=== PATIENT | female | born 1940 ===

== ENCOUNTER 2019-10-18 19:22 | Inpatient (IN) | payer MEDICAID, MEDICARE ==
[2019-10-18 22:50] VITALS: BP 160/84
[2019-10-18] MEDS ORDERED: Magnesium Hydroxide (MOM) 30 mL UDC PO PRN (22:53)
[2019-10-19] MEDS ORDERED: Haloperidol Lactate 5 mg/mL 1mL Vial ONE ×2 (10:43→16:24)
--- NOTE | 2019-10-19 13:32 | History & Physical ---
ADMIT DATE: 10/18/2019 IDENTIFYING INFORMATION: The patient is a 79-year-old female. CHIEF COMPLAINT: "I need to be out of here." HISTORY OF PRESENT ILLNESS: The patient was sent from [place] and medically cleared. She is homeless. She has no allergy. The patient is on a hold for grave disability, danger to self and others. According to the hold, the patient was displaying rapid increase in baseline behavior of concern including increasing aggression, hostility, and agitation. She was alert, oriented x 4; though when I talked to the patient, she could not tell me the date. She knew she was in some sort of facility. She was preoccupied for discharge, she was confused. She believes she is 77, on reality, she is 79. The patient was very much intrusive, kept following me around, telling me that she need to be out of here or if not discharged for a change doctor. She admits, that she has been depressed all of her life. She is not sure why she is here. She denies any prior attempt to harm herself. She denies any other visual hallucination, she is a poor historian. 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 PAST PSYCHIATRIC HISTORY: The patient reports she has been hospitalized before. Unable to give me details. She said she has a history of being addicted to Valium, but she denies any prior suicide attempt. MEDICAL HISTORY: Deferred to the medical doctor. ALLERGIES: The patient has no known drug allergy. MEDICATIONS: The patient is currently on antibiotic on Cipro for UTI infection. FAMILY AND SOCIAL HISTORY: The patient reports she has been depressed all her life. The patient reports that she is , unable tell me how long, but she was , she reports for 14 years. She has 1 son. She believes he is 20s years of age, which is impossible. She reports she has not talked to him for years. She lives in [place]. She has no support. She has a history of abusing Valium in the past. She reports she has been hospitalized before, unable to tell me how often the patient was uncooperative with ____. MENTAL STATUS EXAMINATION: I have been unable to test her memory or her intelligence because of her preoccupation with wanting to be discharged, kept following me from one place to the other, telling me to discharge her or change doctor, unpredictable, impulsive. When asked about sleep and appetite, she did not answer me. When asked about hallucination, she denied. Her long-term memory is poor, cannot remember her age, date of . Recent memory is poor. She is not sure ____ coming here. Her insight about her illness is poor, does not realize what problem she has. Judgment is poor with her being homeless, hard to redirect. 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 ASSESTS: She seems to be physically healthy. Negative poor coping skills, homeless, no support. Does not talk to her son. PLAN: The patient will be started on Lexapro. We will do group therapy, milieu therapy, and individual therapy. Assist with placement. ESTIMATED LENGTH OF STAY: 3-7 days. DISCHARGE CRITERIA: Decreasing depression with a safe place to go to after discharge outpatient treatment. [facility]# [id number]
--- NOTE | 2019-10-19 17:38 | History & Physical ---
ADMIT DATE: HISTORY OF PRESENT ILLNESS: We have a 79-year-old female with hypertension, who reports to the hospital, who is homeless and has suicidal ideations. No chest pain, shortness of breath. No nausea, vomiting, abdominal pain. The patient is somnolent, difficult to awaken. PAST MEDICAL HISTORY: 1. Hypertension. 2. Renal failure. 3. Depression. PAST SURGICAL HISTORY: Non-obtainable. MEDICATIONS: Reviewed. ALLERGIES: None. SOCIAL HISTORY: Non-obtainable. REVIEW OF SYSTEMS: Unobtainable. PHYSICAL EXAMINATION: VITAL SIGNS: Temperature is 98.7, pulse ____, respirations 20, blood pressure 172/66. HEENT: Normocephalic, atraumatic head exam. NECK: Supple. CARDIOVASCULAR: Regular rate and rhythm. LUNGS: Decreased breath sounds. ABDOMEN: Soft, nontender. EXTREMITIES: No edema, cyanosis or clubbing. ASSESSMENT AND PLAN: 1. Depression. 2. Hypertension. 3. Renal insufficiency. 4. Urinary tract infection. The patient will be continued on Cipro. We will repeat labs. JOB# [id number]
[2019-10-20] MEDS: Escitalopram Oxalate 5 mg Tab PO SCH (09:05)
--- NOTE | 2019-10-20 11:46 | Internal Medicine Prog Note ---
Internal Medicine Subjective - Subjective Service Date: 10/20/19 Patient seen and examined:: without staff Patient is:: awake, verbal, interactive Per staff patient has:: no adverse event, no episodes of fall Internal Medicine Objective - Physical Exam Vitals and I&O: Vital Signs Temp 97.4 F 10/19/19 14:00 Pulse 83 10/19/19 14:00 Resp 18 10/19/19 14:00 BP 112/75 10/19/19 14:00 Pulse Ox 98 10/19/19 14:00 Intake & Output 10/19/19 10/20/19 10/20/19 18:59 06:59 18:59 Intake Total 800 120 Balance 800 120 Intake: Oral 800 120 Other: # Voids 3 3 # Bowel Movements 1 Active Medications: Current Medications Acetaminophen (Tylenol) 650 mg PO Q4H PRN PRN Reason: Pain (Mild 1-3) Stop: 12/17/19 22:52 Last Admin: 10/18/19 23:35 Dose: 650 mg Ciprofloxacin (Cipro) 500 mg PO BID [facility] Stop: 10/21/19 17:01 Last Admin: 10/20/19 09:04 Dose: 500 mg Escitalopram Oxalate (Lexapro) 5 mg PO DAILY [facility]; Protocol Stop: 12/19/19 08:59 Last Admin: 10/20/19 09:05 Dose: 5 mg Lorazepam (Ativan) 0.5 mg PO Q4HR PRN; Protocol PRN Reason: Anxiety Stop: 11/17/19 22:52 Magnesium Hydroxide (Milk Of Magnesia) 30 ml PO HS PRN PRN Reason: Constipation Zolpidem Tartrate (Ambien) 5 mg PO HS PRN PRN Reason: Insomnia Stop: 12/17/19 22:52 General: NAD HEENT: NC/AT Neck: Supple, No JVD Lungs: CTAB Cardiovascular: RRR, Normal S1, Normal S2 Abdomen: soft, non-tender Extremities: clear Internal Medicine Assmt/Plan - Assessment Assessment: 1. UTI 2. Psychosis 3. Depression - Plan Plan: continue supportive care d/w r.n.
--- NOTE | 2019-10-20 20:22 | Progress Notes ---
DATE: 10/20/2019 SUBJECTIVE: Case was discussed with staff of the patient, reviewed records. The patient today is a bit calmer. She is not following me and yelling and screaming as she was before; however, she continues to be confused, does not able to tell me her age. Continues to be preoccupied with discharge. However, the staff reports she is compliant with the medication with no side effects. Working on placement. MENTAL STATUS EXAMINATION: The patient is appropriately dressed, not well groomed. Unable to make safe plan for self-care, preoccupied with discharge, minimizing any current intent to harm herself or anybody. The patient with a history of using Valium in the past. ASSESSMENT AND PLAN: The patient continues to be depressed, gravely disabled. Continues to pose a threat to herself and others because of her extreme agitation, irritability. No side effects with the medication, no sedation, no nausea, no extrapyramidal symptoms. The patient is on Cipro and I initially put her on Lexapro yesterday 5 mg a day. We will continue outpatient group therapy, milieu therapy, adjust medication as needed. JOB# [id number]
[2019-10-21] MEDS: Escitalopram Oxalate 5 mg Tab PO SCH (08:44)
--- NOTE | 2019-10-21 20:41 | Psych Progress Note ---
Psych Progress Note - Intro Date of Progress Note: 10/21/19 - Assessment Assessment: Patient interviewed, case discussed with staff, chart and records reviewed. The patient was poorly cooperative with the interview but appears to be calmer. She is guarded and and appears to be irritable with this provider not willing to cooperate. Per staff the patient has been taking her medications. Less behavioral episodes. The patient continues to be disorganized with no plan for self-care. No other concerns at this time. - Vitals, I&O Vitals: Vital Signs - 24 hr 10/21/19 10/21/19 10/21/19 06:30 14:00 19:54 Temp 98.3 F 97.5 F 97.6 F HR 91 79 89 RR 19 20 20 BP 154/84 163/78 175/75 O2 Sat % 96 96 97 10/21/19 19:58 Temp HR RR 20 BP O2 Sat % - Objective Psych General Appearance: Report: No acute distress Psych Behavior: Report: Alert, Uncooperative Psych Speech: Report: Coherent Psych Mood: Report: Irritable Psych Affect: Report: Constricted Psych Cognition: Report: Confused Psych Insight: Report: Impaired Psych Judgement: Report: Impaired - Plan Plan: Continue current treatment plan continue to monitor behaviors and will continue current medications as prescribed. - Review of Relevant Data Review of Relevant Data: I have reviewed the following items and time kinjal (where applicable) has been applied. Psych Data Reviewed: Vitals - Medications Current Medications: Current Medications Acetaminophen (Tylenol) 650 mg PO Q4H PRN PRN Reason: Pain (Mild 1-3) Stop: 12/17/19 22:52 Last Admin: 10/21/19 02:59 Dose: 650 mg Escitalopram Oxalate (Lexapro) 5 mg PO DAILY [facility]; Protocol Stop: 12/19/19 08:59 Last Admin: 10/21/19 08:44 Dose: 5 mg Lorazepam (Ativan) 0.5 mg PO Q4HR PRN; Protocol PRN Reason: Anxiety Stop: 11/17/19 22:52 Magnesium Hydroxide (Milk Of Magnesia) 30 ml PO HS PRN PRN Reason: Constipation Risperidone (Risperdal) 0.5 mg PO BID [facility]; Protocol Stop: 12/20/19 08:59 Last Admin: 10/21/19 16:30 Dose: 0.5 mg Zolpidem Tartrate (Ambien) 5 mg PO HS PRN PRN Reason: Insomnia Stop: 12/17/19 22:52
[2019-10-22] MEDS: Escitalopram Oxalate 5 mg Tab PO SCH ×2 (09:08→10:39)
--- NOTE | 2019-10-22 19:08 | Psych Progress Note ---
Psych Progress Note - Intro Date of Progress Note: 10/22/19 - Assessment Assessment: Patient interviewed, case discussed with staff, chart and records reviewed. The patient was poorly cooperative with the interview but appears to be calmer. She is guarded and and appears to be irritable with this provider not willing to cooperate. Per staff the patient has been taking her medications. Less behavioral episodes. The patient continues to be disorganized with no plan for self-care. Discharged focused. No other concerns at this time. - Vitals, I&O Vitals: Vital Signs - 24 hr 10/21/19 10/21/19 10/22/19 19:54 19:58 08:00 Temp 97.6 F HR 89 75 RR 20 20 20 BP 175/75 142/66 O2 Sat % 97 10/22/19 14:00 Temp 98.4 F HR 73 RR 20 BP 145/60 O2 Sat % 92 - Objective Psych General Appearance: Report: No acute distress Psych Behavior: Report: Alert, Uncooperative Psych Speech: Report: Coherent Psych Mood: Report: Irritable Psych Affect: Report: Constricted Psych Cognition: Report: Confused Psych Insight: Report: Impaired Psych Judgement: Report: Impaired - Plan Plan: Continue current treatment plan continue to monitor behaviors and will continue current medications as prescribed. - Review of Relevant Data Review of Relevant Data: I have reviewed the following items and time kinjal (where applicable) has been applied. - Medications Current Medications: Current Medications Acetaminophen (Tylenol) 650 mg PO Q4H PRN PRN Reason: Pain (Mild 1-3) Stop: 12/17/19 22:52 Last Admin: 10/22/19 15:41 Dose: 650 mg Escitalopram Oxalate (Lexapro) 5 mg PO DAILY [facility]; Protocol Stop: 12/19/19 08:59 Last Admin: 10/22/19 10:39 Dose: 5 mg Lorazepam (Ativan) 0.5 mg PO Q4HR PRN; Protocol PRN Reason: Anxiety Stop: 11/17/19 22:52 Magnesium Hydroxide (Milk Of Magnesia) 30 ml PO HS PRN PRN Reason: Constipation Risperidone (Risperdal) 0.5 mg PO BID [facility]; Protocol Stop: 12/20/19 08:59 Last Admin: 10/22/19 16:25 Dose: 0.5 mg Zolpidem Tartrate (Ambien) 5 mg PO HS PRN PRN Reason: Insomnia Stop: 12/17/19 22:52 Last Admin: 10/21/19 20:52 Dose: 5 mg
[2019-10-23] MEDS: Escitalopram Oxalate 5 mg Tab PO SCH (08:16)
--- NOTE | 2019-10-23 11:52 | Internal Medicine Prog Note ---
Internal Medicine Subjective - Subjective Service Date: 10/23/19 (complaining of cough) Patient is:: awake, verbal, interactive Per staff patient has:: no adverse event, no episodes of fall Internal Medicine Objective - Physical Exam Vitals and I&O: Vital Signs Temp 97.9 F 10/22/19 20:01 Pulse 81 10/22/19 21:47 Resp 18 10/23/19 08:00 BP 159/60 10/22/19 23:53 Pulse Ox 96 10/22/19 20:01 Intake & Output 10/22/19 10/23/19 10/23/19 18:59 06:59 18:59 Intake Total 950 420 Balance 950 420 Intake: Oral 950 420 Other: # Voids 1 # Bowel Movements 0 Active Medications: Current Medications Acetaminophen (Tylenol) 650 mg PO Q4H PRN PRN Reason: Pain (Mild 1-3) Stop: 12/17/19 22:52 Last Admin: 10/22/19 21:27 Dose: 650 mg Escitalopram Oxalate (Lexapro) 5 mg PO DAILY [facility]; Protocol Stop: 12/19/19 08:59 Last Admin: 10/23/19 08:16 Dose: 5 mg Lorazepam (Ativan) 0.5 mg PO Q4HR PRN; Protocol PRN Reason: Anxiety Stop: 11/17/19 22:52 Last Admin: 10/22/19 22:33 Dose: 0.5 mg Magnesium Hydroxide (Milk Of Magnesia) 30 ml PO HS PRN PRN Reason: Constipation Risperidone (Risperdal) 0.5 mg PO BID [facility]; Protocol Stop: 12/20/19 08:59 Last Admin: 10/23/19 08:16 Dose: 0.5 mg Zolpidem Tartrate (Ambien) 5 mg PO HS PRN PRN Reason: Insomnia Stop: 12/17/19 22:52 Last Admin: 10/22/19 20:42 Dose: 5 mg General: NAD HEENT: NC/AT Neck: Supple, No JVD Lungs: CTAB Cardiovascular: RRR, Normal S1, Normal S2 Abdomen: soft, non-tender Extremities: clear Internal Medicine Assmt/Plan - Assessment Assessment: 1. Cough 2. Psychosis 3. Depression - Plan Plan: check Covid-19 check cxr check cbc isolation d/w r.n. Nutritional Asmnt/Malnutr-PDOC - Dietary Evaluation Malnutrition Findings (Please click <Entered> for more info): Nutritional Asmnt/Malnutrition Start: 10/21/19 08: 04 Text: Status: Complete Freq: Protocol: Document 10/21/19 08:04 UMANGGRISEL (Rec: 10/21/19 08:13 JAY SALONI- [id number]) Nutritional Asmnt/Malnutrition Patient General Information Nutritional Screening Moderate Risk Diagnosis Psychosis Pertinent Medical Hx/Surgical Hx Hypertension, Renal failure, depression Subjective Information Patient was admitted from [place]. Homeless per H&P. Per nursing notes, patient is suspicious, paranoid, hyperverbal. Dietary providing ~2400 kcal, 115gm protein/day , adequate to meet nutrient needs. Current Diet Order/ Nutrition Support Mechanical Soft, 2gm Sodium Patient / S.O Not Indicated Pertinent Medications MOM Nutritional Hx/Data Height 1.42 m Height (Calculated Centimeters) 142.2 Current Weight (lbs) 54.431 kg Weight (Calculated Kilograms) 54.4 Weight (Calculated Grams) 58873.1 [place] Body Weight 90 % [place] Body Weight 133 Body Mass Index (BMI) 26.9 Recent Weight Change No Weight Status Overweight GI Symptoms GI Symptoms None Last BM 5 x 1 Difficult in: None Food Allergies No Cultural/Ethnic/Confucianism Belief none indicated Usual diet at home unknown Skin Integrity/Comment: Niranjan 20, Intact Current %PO Good (75-100%) Estimated Nutritional Goals BEE in Kcals: Adj wt of IBW Calories/Kcals/Kg 44.3kg Adj BW 25-30 kcal/kg Kcals Calculated ~3375-2212 kcal/day Protein: Adj wt of IBW Protein g/k-1.2 gm/kg Protein Calculated 45-55gm/day Fluid: ml ~0471-0424 ml/day (1 ml/kcal) Nutritional Problem 1. Problem Problem No nutrition diagnosis at this time. Intervention/Recommendation Comments Continue mechanical soft, 2gm sodium diet as tolerated by patient. Expected Outcomes/Goals Expected Outcomes/Goals Oral intake >75% of meals, weight stable or trend toward IBW, nutrition related labs WNL F/U LR 10/27-
--- NOTE | 2019-10-24 01:17 | Progress Notes ---
DATE: 10/23/2019 Case was discussed with staff of the patient, reviewed records. The patient continues to be uncooperative. She in general, she is calm, but guarded, easily irritable at times has been taking her medication with no side effects, no sedation or nausea, no extrapyramidal symptoms. Continues to be confused, poor insight and judgment. MENTAL STATUS EXAMINATION: The patient is irritable, very poor insight, unable to make safe plan for self-care. She is homeless. No side effects with the medication, no sedation, no nausea, no extrapyramidal symptoms. I will be increasing her Lexapro to 10 mg a day and tolerated the increase Risperdal with no side effects. Her hold was extended by on 10/21/2019. We will continue outpatient group therapy, milieu therapy, adjust medication as needed. JOB# [id number] MTDD
--- NOTE | 2019-10-24 10:35 | Diagnostic Imaging Report ---
Portable chest x-ray History: Cough Allowing for portable technique the heart size is normal. No focal pulmonary parenchymal processes. No hilar or mediastinal abnormalities. Old left for fractures along with an old left clavicular fracture noted. Impression: No acute abnormalities.
--- NOTE | 2019-10-24 19:28 | Progress Notes ---
DATE: 10/24/2019 Case was discussed with staff of the patient, reviewed records. The patient has been isolating herself, states to herself. Continues to have poor insight, unpredictable, impulsive, needing redirection, preoccupied with discharge. MENTAL STATUS EXAMINATION: The patient is appropriately dressed, not very well groomed. Continues to be internally preoccupied. Very poor insight, unable to make safe plan for self-care. She tolerated the Risperdal with the increase in Lexapro with no side effects, no sedation, no nausea, no extrapyramidal symptoms. ASSESSMENT: The patient continues to have poor insight ,impulsive unpredictible, No side effects with the medication, no sedation, no nausea, no extrapyramidal symptoms. We will continue to work with the patient in group therapy, milieu therapy, and adjust the medications as needed. JOB# [id number] MTDD
--- NOTE | 2019-10-25 13:59 | Internal Medicine Prog Note ---
Internal Medicine Subjective - Subjective Service Date: 10/25/19 Patient seen and examined:: without staff Patient is:: awake, verbal, interactive Per staff patient has:: no adverse event, no episodes of fall Internal Medicine Objective - Physical Exam Vitals and I&O: Vital Signs Temp 98.1 F 10/25/19 06:19 Pulse 78 10/25/19 06:19 Resp 18 10/25/19 08:00 BP 162/98 10/25/19 06:19 Pulse Ox 97 10/25/19 06:19 Intake & Output 10/24/19 10/25/19 10/25/19 18:59 06:59 18:59 Intake Total 900 Balance 900 Intake: Oral 900 Other: # Voids 3 # Bowel Movements 1 Active Medications: Current Medications Acetaminophen (Tylenol) 650 mg PO Q4H PRN PRN Reason: Pain (Mild 1-3) Stop: 12/17/19 22:52 Last Admin: 10/24/19 03:50 Dose: 650 mg Escitalopram Oxalate (Lexapro) 10 mg PO DAILY [facility]; Protocol Stop: 12/23/19 08:59 Last Admin: 10/25/19 09:40 Dose: 10 mg Lorazepam (Ativan) 0.5 mg PO Q4HR PRN; Protocol PRN Reason: Anxiety Stop: 11/17/19 22:52 Last Admin: 10/24/19 21:00 Dose: 0.5 mg Magnesium Hydroxide (Milk Of Magnesia) 30 ml PO HS PRN PRN Reason: Constipation Risperidone (Risperdal) 0.75 mg PO BID [facility]; Protocol Stop: 12/24/19 08:59 Last Admin: 10/25/19 09:40 Dose: 0.75 mg Zolpidem Tartrate (Ambien) 5 mg PO HS PRN PRN Reason: Insomnia Stop: 12/17/19 22:52 Last Admin: 10/24/19 20:48 Dose: 5 mg General: NAD HEENT: NC/AT Neck: Supple, No JVD Lungs: CTAB Cardiovascular: RRR, Normal S1, Normal S2 Abdomen: soft, non-tender Extremities: clear Internal Medicine Assmt/Plan - Assessment Assessment: 1. HTN 2. Psychosis 3. Depression - Plan Plan: BP is elevated will start clonidine .1 mg po q 6 hours prn for SBP greater than 160 d/w r.n. Nutritional Asmnt/Malnutr-PDOC - Dietary Evaluation Malnutrition Findings (Please click <Entered> for more info): Nutritional Asmnt/Malnutrition Start: 10/21/19 08: 04 Text: Status: Complete Freq: Protocol: Document 10/21/19 08:04 UMANGGRISEL (Rec: 10/21/19 08:13 [email or web address] [email or web address]- [id number]) Nutritional Asmnt/Malnutrition Patient General Information Nutritional Screening Moderate Risk Diagnosis Psychosis Pertinent Medical Hx/Surgical Hx Hypertension, Renal failure, depression Subjective Information Patient was admitted from [place]. Homeless per H&P. Per nursing notes, patient is suspicious, paranoid, hyperverbal. Dietary providing ~2400 kcal, 115gm protein/day , adequate to meet nutrient needs. Current Diet Order/ Nutrition Support Mechanical Soft, 2gm Sodium Patient / S.O Not Indicated Pertinent Medications MOM Nutritional Hx/Data Height 1.42 m Height (Calculated Centimeters) 142.2 Current Weight (lbs) 54.431 kg Weight (Calculated Kilograms) 54.4 Weight (Calculated Grams) 37629.1 [place] Body Weight 90 % [place] Body Weight 133 Body Mass Index (BMI) 26.9 Recent Weight Change No Weight Status Overweight GI Symptoms GI Symptoms None Last BM 5/8 x 1 Difficult in: None Food Allergies No Cultural/Ethnic/Baptist Belief none indicated Usual diet at home unknown Skin Integrity/Comment: Niranjan 20, Intact Current %PO Good (75-100%) Estimated Nutritional Goals BEE in Kcals: Adj wt of IBW Calories/Kcals/Kg 44.3kg Adj BW 25-30 kcal/kg Kcals Calculated ~2065-4396 kcal/day Protein: Adj wt of IBW Protein g/k-1.2 gm/kg Protein Calculated 45-55gm/day Fluid: ml ~7938-8900 ml/day (1 ml/kcal) Nutritional Problem 1. Problem Problem No nutrition diagnosis at this time. Intervention/Recommendation Comments Continue mechanical soft, 2gm sodium diet as tolerated by patient. Expected Outcomes/Goals Expected Outcomes/Goals Oral intake >75% of meals, weight stable or trend toward IBW, nutrition related labs WNL F/U LR 10/27-
--- NOTE | 2019-10-27 14:54 | Internal Medicine Prog Note ---
Internal Medicine Subjective - Subjective Service Date: 10/27/19 Patient is:: awake, verbal, interactive Per staff patient has:: no adverse event, no episodes of fall Internal Medicine Objective - Physical Exam Vitals and I&O: Vital Signs Temp 98.8 F 10/27/19 14:00 Pulse 60 10/27/19 14:00 Resp 20 10/27/19 14:00 BP 148/51 10/27/19 14:00 Pulse Ox 97 10/27/19 14:00 Intake & Output 10/26/19 10/27/19 10/27/19 18:59 06:59 18:59 Intake Total 1000 120 Balance 1000 120 Intake: Oral 1000 120 Other: # Voids 4 2 # Bowel Movements 1 0 Active Medications: Current Medications Acetaminophen (Tylenol) 650 mg PO Q4H PRN PRN Reason: Pain (Mild 1-3) Stop: 12/17/19 22:52 Last Admin: 10/26/19 22:59 Dose: 650 mg Escitalopram Oxalate (Lexapro) 10 mg PO DAILY [facility]; Protocol Stop: 12/23/19 08:59 Last Admin: 10/27/19 09:22 Dose: 10 mg Lorazepam (Ativan) 0.5 mg PO Q4HR PRN; Protocol PRN Reason: Anxiety Stop: 11/17/19 22:52 Last Admin: 10/26/19 21:33 Dose: 0.5 mg Magnesium Hydroxide (Milk Of Magnesia) 30 ml PO HS PRN PRN Reason: Constipation Risperidone (Risperdal) 0.75 mg PO BID [facility]; Protocol Stop: 12/24/19 08:59 Last Admin: 10/27/19 09:22 Dose: 0.75 mg Zolpidem Tartrate (Ambien) 5 mg PO HS PRN PRN Reason: Insomnia Stop: 12/17/19 22:52 Last Admin: 10/26/19 20:37 Dose: 5 mg General: NAD HEENT: NC/AT Neck: Supple, No JVD Lungs: CTAB Cardiovascular: RRR, Normal S1, Normal S2 Abdomen: soft, non-tender Extremities: clear Internal Medicine Assmt/Plan - Assessment Assessment: 1. HTN 2. Psychosis 3. Depression - Plan Plan: start norvasc 5 mg po daily d.w r.n. Nutritional Asmnt/Malnutr-PDOC - Dietary Evaluation Malnutrition Findings (Please click <Entered> for more info): Nutritional Asmnt/Malnutrition Start: 10/21/19 08: 04 Text: Status: Complete Freq: Protocol: Document 10/21/19 08:04 UMANGGRISEL (Rec: 10/21/19 08:13 UMANGGRISEL GUALLPA- [id number]) Nutritional Asmnt/Malnutrition Patient General Information Nutritional Screening Moderate Risk Diagnosis Psychosis Pertinent Medical Hx/Surgical Hx Hypertension, Renal failure, depression Subjective Information Patient was admitted from [place]. Homeless per H&P. Per nursing notes, patient is suspicious, paranoid, hyperverbal. Dietary providing ~2400 kcal, 115gm protein/day , adequate to meet nutrient needs. Current Diet Order/ Nutrition Support Mechanical Soft, 2gm Sodium Patient / S.O Not Indicated Pertinent Medications MOM Nutritional Hx/Data Height 1.42 m Height (Calculated Centimeters) 142.2 Current Weight (lbs) 54.431 kg Weight (Calculated Kilograms) 54.4 Weight (Calculated Grams) 53372.1 [place] Body Weight 90 % [place] Body Weight 133 Body Mass Index (BMI) 26.9 Recent Weight Change No Weight Status Overweight GI Symptoms GI Symptoms None Last BM 5 x 1 Difficult in: None Food Allergies No Cultural/Ethnic/Mosque Belief none indicated Usual diet at home unknown Skin Integrity/Comment: Niranjan 20, Intact Current %PO Good (75-100%) Estimated Nutritional Goals BEE in Kcals: Adj wt of IBW Calories/Kcals/Kg 44.3kg Adj BW 25-30 kcal/kg Kcals Calculated ~4319-4897 kcal/day Protein: Adj wt of IBW Protein g/k-1.2 gm/kg Protein Calculated 45-55gm/day Fluid: ml ~9746-3304 ml/day (1 ml/kcal) Nutritional Problem 1. Problem Problem No nutrition diagnosis at this time. Intervention/Recommendation Comments Continue mechanical soft, 2gm sodium diet as tolerated by patient. Expected Outcomes/Goals Expected Outcomes/Goals Oral intake >75% of meals, weight stable or trend toward IBW, nutrition related labs WNL F/U LR 10/27-
--- NOTE | 2019-10-27 16:18 | Progress Notes ---
DATE: 10/25/2019 Case was discussed with staff of the patient and reviewed records. The patient continues to be intrusive, unpredictable, impulsive. She is sleeping better, eating better, continues to be internally preoccupied. The patient continues to have poor insight. The patient reports she has a place to go to in a motel, which I am not sure if this is appropriate placement. The patient is very anxious to be discharged and wants to go and I discussed her to discuss it with the case resolution specialist as we will discharge her as soon as she is considered to be safe for discharge and have a safe place to go to MENTAL STATUS EXAMINATION: The patient is appropriately dressed, not well groomed. Her speech is rambling. She tend to be very intrusive, continues to ask the same questions, more explanations, hard to redirect, easily agitated, unable to make safe plan for her self-care. ASSESSMENT: The patient continues to be unpredictable, impulsive, easily agitated. PLAN: The patient has been compliant with the medication with no side effects, no sedation, no nausea, no extrapyramidal symptoms. She tolerated the increase in Lexapro with no side effects. I will be further increasing her Risperdal dose to 0.75 mg twice a day to help improve her impulsivity, acting out behavior, hard to redirect and we will continue outpatient group therapy, milieu therapy, and adjust medication as needed. JOB# [id number] MTDYelitza
--- NOTE | 2019-10-27 16:18 | Progress Notes ---
DATE: 10/26/2019 FOLLOWUP PROGRESS NOTE Case was discussed with staff of the patient, reviewed records. The patient continues to be irritable. Continues to have poor insight, unable to make safe plan for self-care, easily agitated, irritable, intrusive. No side effects with the medication, no sedation, no nausea, no extrapyramidal symptoms. We will continue to work with the patient in group therapy, milieu therapy, and adjust medications as needed. JOB# [id number]
--- NOTE | 2019-10-27 16:19 | Progress Notes ---
DATE: 10/27/2019 SUMMARY: Case was discussed with the staff of the patient and reviewed records. The patient continues to be fixated on discharge. The patient remains disorganized, internally preoccupied, looking disheveled, unable to make safe plan for self-care. Her sleep and appetite varies. No side effects to the medication, no sedation, no nausea, and no extrapyramidal symptoms. I increased her dose of Risperdal 0.75 mg twice a day and no side effects to the medication, no sedation, no nausea, and no extrapyramidal symptoms. We will continue to work the patient in group therapy, milieu therapy, and adjust medications as needed. JOB# [id number]
--- NOTE | 2019-10-28 13:21 | Progress Notes ---
DATE: 10/28/2019 SUBJECTIVE: The patient is currently 79-year-old female, homeless, on hold for grave disability, try to speak with me this morning, she does not tell me too much. Per Dr. Grant, she is pretty well oriented, did know her age. Dr. Grant saw the patient yesterday, fixated on discharge, disorganized, internally preoccupied, disheveled, unkempt. It is unclear where she is going to go when she leaves the hospital. Per nursing staff, slept about 6 hours. Periods of confusion, but otherwise fairly oriented. Noted by staff to get easily irritated, agitated, poor impulse control, focused on smoking. Medications reviewed. Labs reviewed. Vitals reviewed. Blood pressure 148/51, pulse of 60. ASSESSMENT: The patient is disheveled, unkempt, not really amenable to speaking with me. Difficult to interview. Nursing notes were reviewed. Dr. Grant's notes are reviewed. We will continue dosing of Risperdal. [facility]# [id number]
--- NOTE | 2019-10-29 12:01 | Progress Notes ---
DATE: 10/29/2019 SUBJECTIVE: A 79-year-old female came in homeless, concerns for grave disability. Unfortunately, the patient is not engaging much with me this morning, tired, tells me to come back later. Per staff, easily agitated, non-redirectable. I am able to get some information out of her. She is pretty well oriented, just paranoid, suspicious of staff. Per staff, she is easily agitated, hostile at times, able to verbalize basic needs. Staff noting some episodes of confusion. The patient was apparently asking for her mom last night. It is unclear if the mom is still alive given that the patient is 79 years old. Argumentative, resistive to following some directions. Staff noting she is also demanding, focused on smoking, coughing, ruminative, gets loud and hostile if she does not get what she wants. Medications were reviewed. Labs reviewed. Vitals reviewed, blood pressure 143/60, pulse of 77. No overt side effects. ASSESSMENT: A 79-year-old female with ongoing symptoms, hostile, some agitation noted. Generally calmer, per staff, somewhat more redirectable, taking her medications, Lexapro, Risperdal. No EPS on exam. The patient to follow up with Dr. Grant in the morning ____. JOB# [id number]
--- NOTE | 2019-10-30 14:57 | Internal Medicine Prog Note ---
Internal Medicine Subjective - Subjective Service Date: 10/30/19 Patient seen and examined:: without staff Patient is:: awake, verbal, interactive Per staff patient has:: no adverse event, no episodes of fall Internal Medicine Objective - Physical Exam Vitals and I&O: Vital Signs Temp 97.5 F 10/30/19 06:29 Pulse 78 10/30/19 08:17 Resp 18 10/30/19 08:00 BP 152/60 10/30/19 08:17 Pulse Ox 97 10/30/19 06:29 Intake & Output 10/29/19 10/30/19 10/30/19 18:59 06:59 18:59 Intake Total 900 360 Balance 900 360 Intake: Oral 900 360 Other: # Voids 3 1 # Bowel Movements 1 Active Medications: Current Medications Acetaminophen (Tylenol) 650 mg PO Q4H PRN PRN Reason: Pain (Mild 1-3) Stop: 12/17/19 22:52 Last Admin: 10/30/19 06:50 Dose: 650 mg Escitalopram Oxalate (Lexapro) 10 mg PO DAILY [facility]; Protocol Stop: 12/23/19 08:59 Last Admin: 10/30/19 08:17 Dose: 10 mg Lorazepam (Ativan) 0.5 mg PO Q4HR PRN; Protocol PRN Reason: Anxiety Stop: 11/17/19 22:52 Last Admin: 10/29/19 22:49 Dose: 0.5 mg Risperidone (Risperdal) 1 mg PO BID [facility]; Protocol Stop: 12/29/19 16:59 Zolpidem Tartrate (Ambien) 5 mg PO HS PRN PRN Reason: Insomnia Stop: 12/17/19 22:52 Last Admin: 10/29/19 21:01 Dose: 5 mg General: NAD HEENT: NC/AT Neck: Supple, No JVD Lungs: CTAB Cardiovascular: RRR, Normal S1, Normal S2 Abdomen: soft, non-tender Extremities: clear Neurological: no change Internal Medicine Assmt/Plan - Assessment Assessment: 1. HTN 2. Psychosis 3. Depression - Plan Plan: increase norvasc to 10 mg po daily d.w r.n. Nutritional Asmnt/Malnutr-PDOC - Dietary Evaluation Malnutrition Findings (Please click <Entered> for more info): Nutritional Asmnt/Malnutrition Start: 10/21/19 08: 04 Text: Status: Complete Freq: Protocol: Document 10/21/19 08:04 UMANGIvania (Rec: 10/21/19 08:13 JAY SALONI- [id number]) Nutritional Asmnt/Malnutrition Patient General Information Nutritional Screening Moderate Risk Diagnosis Psychosis Pertinent Medical Hx/Surgical Hx Hypertension, Renal failure, depression Subjective Information Patient was admitted from [place]. Homeless per H&P. Per nursing notes, patient is suspicious, paranoid, hyperverbal. Dietary providing ~2400 kcal, 115gm protein/day , adequate to meet nutrient needs. Current Diet Order/ Nutrition Support Mechanical Soft, 2gm Sodium Patient / S.O Not Indicated Pertinent Medications MOM Nutritional Hx/Data Height 1.42 m Height (Calculated Centimeters) 142.2 Current Weight (lbs) 54.431 kg Weight (Calculated Kilograms) 54.4 Weight (Calculated Grams) 20193.1 [place] Body Weight 90 % [place] Body Weight 133 Body Mass Index (BMI) 26.9 Recent Weight Change No Weight Status Overweight GI Symptoms GI Symptoms None Last BM 5 x 1 Difficult in: None Food Allergies No Cultural/Ethnic/Mandaeism Belief none indicated Usual diet at home unknown Skin Integrity/Comment: Niranjan 20, Intact Current %PO Good (75-100%) Estimated Nutritional Goals BEE in Kcals: Adj wt of IBW Calories/Kcals/Kg 44.3kg Adj BW 25-30 kcal/kg Kcals Calculated ~7515-7848 kcal/day Protein: Adj wt of IBW Protein g/k-1.2 gm/kg Protein Calculated 45-55gm/day Fluid: ml ~6952-6968 ml/day (1 ml/kcal) Nutritional Problem 1. Problem Problem No nutrition diagnosis at this time. Intervention/Recommendation Comments Continue mechanical soft, 2gm sodium diet as tolerated by patient. Expected Outcomes/Goals Expected Outcomes/Goals Oral intake >75% of meals, weight stable or trend toward IBW, nutrition related labs WNL F/U LR 10/27-
--- NOTE | 2019-10-31 00:45 | Progress Notes ---
DATE: 10/30/2019 Case was discussed with staff of the patient, reviewed records. Staff is working on the placement for this patient. as per the staff, she continues to be easily agitated, hard to redirect. She was paranoid, suspicious fighting with the staff, easily agitated. Lab reviewed. Vital signs stable. No side effects with the medication, no sedation, no nausea, no extrapyramidal symptoms. She tolerated increase in Lexapro to 10 mg a day. I will be increasing Risperdal to 1 mg twice a day to help improve her agitated, aggressive, paranoid behavior and no side effects with the medications, no sedation, no nausea, no extrapyramidal symptoms, so Respirdal will increase to 1 mg twice a day. Also, working on placement. We will continue outpatient group therapy, milieu therapy, and adjust medications as needed. JOB# [id number] ALFA
--- NOTE | 2019-10-31 13:45 | Progress Notes ---
DATE: 10/31/2019 Case was discussed with staff of the patient, reviewed records. The patient continues to be unpredictable, impulsive, paranoid, and suspicious. She continues to have poor insight. Looking disheveled, disorganized, internally preoccupied. She is calmer in general compared to the first day I met her. She has been compliant with the medication with no side effects, no sedation, no nausea, no extrapyramidal symptoms. I increased her Risperdal yesterday to 1 mg twice a day and sleeping better, eating better. We will continue outpatient group therapy, milieu therapy, and adjust medications as needed. JOB# [id number]
--- NOTE | 2019-11-01 10:31 | Progress Notes ---
DATE: 11/01/2019 Case was discussed with staff of the patient, reviewed records. The patient is using a walker. The patient continues to be intrusive, irritable, continues to have poor insight, preoccupied with discharge. The staff is working on placement for this patient. Her sleep and appetite varies. However, the staff reports she is starting to become more redirectable. Now, she is compliant with the medication with no side effects, no sedation, no nausea, no extrapyramidal symptoms. Vital signs stable. Uses a walker. We will continue outpatient group therapy, milieu therapy, adjust medication as needed. JOB# [id number]
--- NOTE | 2019-11-01 14:11 | Internal Medicine Prog Note ---
Internal Medicine Subjective - Subjective Service Date: 11/01/19 Patient seen and examined:: without staff Patient is:: awake, verbal, interactive Per staff patient has:: no adverse event, no episodes of fall Internal Medicine Objective - Physical Exam Vitals and I&O: Vital Signs Temp 97.2 F 11/01/19 05:36 Pulse 70 11/01/19 08:42 Resp 20 11/01/19 08:00 BP 163/58 11/01/19 08:42 Pulse Ox 96 11/01/19 05:36 Intake & Output 10/31/19 11/01/19 11/01/19 18:59 06:59 18:59 Intake Total 800 240 400 Balance 800 240 400 Intake: Oral 800 240 400 Other: # Voids 3 2 # Bowel Movements 0 Active Medications: Current Medications Acetaminophen (Tylenol) 650 mg PO Q4H PRN PRN Reason: Pain (Mild 1-3) Stop: 12/17/19 22:52 Last Admin: 10/31/19 08:39 Dose: 650 mg Amlodipine Besylate (Norvasc) 10 mg PO DAILY [facility] Stop: 12/29/19 14:59 Last Admin: 11/01/19 08:42 Dose: 10 mg Escitalopram Oxalate (Lexapro) 10 mg PO DAILY [facility]; Protocol Stop: 12/23/19 08:59 Last Admin: 11/01/19 08:43 Dose: 10 mg Lorazepam (Ativan) 0.5 mg PO Q4HR PRN; Protocol PRN Reason: Anxiety Stop: 11/17/19 22:52 Last Admin: 10/31/19 21:58 Dose: 0.5 mg Risperidone (Risperdal) 1 mg PO BID [facility]; Protocol Stop: 12/29/19 16:59 Last Admin: 11/01/19 08:43 Dose: 1 mg Zolpidem Tartrate (Ambien) 5 mg PO HS PRN PRN Reason: Insomnia Stop: 12/17/19 22:52 Last Admin: 10/31/19 20:48 Dose: 5 mg General: NAD HEENT: NC/AT Neck: Supple, No JVD Lungs: CTAB Cardiovascular: RRR, Normal S1, Normal S2 Abdomen: soft, non-tender Extremities: clear Neurological: no change Internal Medicine Assmt/Plan - Assessment Assessment: 1. HTN 2. Psychosis 3. Depression - Plan Plan: start lisinopril 10 mg po daily first dose now continue norvasc 10 mg po daily check bmp d/w r.n. Nutritional Asmnt/Malnutr-PDOC - Dietary Evaluation Malnutrition Findings (Please click <Entered> for more info): Nutritional Asmnt/Malnutrition Start: 10/21/19 08: 04 Text: Status: Complete Freq: Protocol: Document 10/21/19 08:04 UMANGGRISEL (Rec: 10/21/19 08:13 MMKRISTI SALONI- [id number]) Nutritional Asmnt/Malnutrition Patient General Information Nutritional Screening Moderate Risk Diagnosis Psychosis Pertinent Medical Hx/Surgical Hx Hypertension, Renal failure, depression Subjective Information Patient was admitted from [place]. Homeless per H&P. Per nursing notes, patient is suspicious, paranoid, hyperverbal. Dietary providing ~2400 kcal, 115gm protein/day , adequate to meet nutrient needs. Current Diet Order/ Nutrition Support Mechanical Soft, 2gm Sodium Patient / S.O Not Indicated Pertinent Medications MOM Nutritional Hx/Data Height 1.42 m Height (Calculated Centimeters) 142.2 Current Weight (lbs) 54.431 kg Weight (Calculated Kilograms) 54.4 Weight (Calculated Grams) 96504.1 [place] Body Weight 90 % [place] Body Weight 133 Body Mass Index (BMI) 26.9 Recent Weight Change No Weight Status Overweight GI Symptoms GI Symptoms None Last BM 5 x 1 Difficult in: None Food Allergies No Cultural/Ethnic/Judaism Belief none indicated Usual diet at home unknown Skin Integrity/Comment: Niranjan 20, Intact Current %PO Good (75-100%) Estimated Nutritional Goals BEE in Kcals: Adj wt of IBW Calories/Kcals/Kg 44.3kg Adj BW 25-30 kcal/kg Kcals Calculated ~4436-9430 kcal/day Protein: Adj wt of IBW Protein g/k-1.2 gm/kg Protein Calculated 45-55gm/day Fluid: ml ~2448-4811 ml/day (1 ml/kcal) Nutritional Problem 1. Problem Problem No nutrition diagnosis at this time. Intervention/Recommendation Comments Continue mechanical soft, 2gm sodium diet as tolerated by patient. Expected Outcomes/Goals Expected Outcomes/Goals Oral intake >75% of meals, weight stable or trend toward IBW, nutrition related labs WNL F/U LR 10/27-
--- NOTE | 2019-11-02 08:49 | Discharge Summary ---
DATE OF DISCHARGE: 11/02/2019 IDENTIFYING INFORMATION: The patient is a 79-year-old female. CHIEF COMPLAINT: "I need to be out of here." HISTORY OF PRESENT ILLNESS: This after she was medically cleared. The patient is homeless. Has no allergies. is on a hold for grave disability, danger to self and others. According , the patient was displaying rapid increase in aggressive behavior. She has been hostile and agitated. She was alert and oriented. When I talked to the patient, she could not tell me the date. She knew she was in some sort of facility. She was preoccupied with discharge. She was confused. She believes she is 77 years of age, but she is 79. The patient was very much intrusive, kept following me around, telling me that she needed to be out of here or if not discharged, to change doctors. She admits that she has been depressed all her life not sure why she was at this facility. She denies any prior attempt to harm herself. She denies any other visual hallucinations. 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 The patient reports she has been hospitalized before. Unable to give me details. She said she has a history of being addicted to Valium. She denies prior suicide attempt. She has no known drug allergy. COURSE IN THE HOSPITAL: The patient is diagnosed with depression with some psychotic behavior. The patient also with cognitive disorder. The patient was started on Risperdal, the dose was increased over the course of her stay to 1 mg twice a day. Also, Lexapro was added 5 mg increased to 10 mg. The patient was on amlodipine for blood pressure. The patient progressively got better. She was calmer, less intrusive. She was sleeping well, eating well as we found a placement for her and she was stable and felt she could be discharged to a lesser level of care. CONDITION ON DISCHARGE: The patient was appropriately dressed, not very groomed, alert, oriented to place, person, time, and situation. FINAL DIAGNOSES: Major depression, recurrent with psychosis; rule out bipolar disorder, cognitive disorder, not otherwise specified. MEDICAL DIAGNOSES: Hypertension, deferred to the medical doctor. The patient will follow up with the psychiatrist, primary care physician and therapist. EXPECTED OUTCOME: Stable if the patient complies above. [facility]# [id number] ALFA
--- NOTE | 2019-11-02 14:51 | Internal Medicine Prog Note ---
Internal Medicine Subjective - Subjective Service Date: 11/02/19 Patient seen and examined:: without staff Patient is:: awake, verbal, interactive Per staff patient has:: no adverse event, no episodes of fall Internal Medicine Objective - Physical Exam Vitals and I&O: Vital Signs Temp 97 F 11/02/19 06:24 Pulse 79 11/02/19 12:39 Resp 20 11/02/19 12:39 BP 130/72 11/02/19 12:39 Pulse Ox 95 11/02/19 06:24 Intake & Output 11/01/19 11/02/19 11/02/19 18:59 06:59 18:59 Intake Total 850 120 Output Total 1 Balance 849 120 Intake: Oral 850 120 Output: Urine 1 Other: # Voids 1 # Bowel Movements 0 Stool Characteristics Soft Brown Active Medications: Current Medications Acetaminophen (Tylenol) 650 mg PO Q4H PRN PRN Reason: Pain (Mild 1-3) Stop: 12/17/19 22:52 Last Admin: 11/02/19 01:00 Dose: 650 mg Amlodipine Besylate (Norvasc) 10 mg PO DAILY [facility] Stop: 12/29/19 14:59 Last Admin: 11/02/19 09:22 Dose: 10 mg Escitalopram Oxalate (Lexapro) 10 mg PO DAILY [facility]; Protocol Stop: 12/23/19 08:59 Last Admin: 11/02/19 09:23 Dose: 10 mg Lisinopril (Zestril) 10 mg PO DAILY [facility] Stop: 12/31/19 14:14 Last Admin: 11/02/19 09:23 Dose: 10 mg Lorazepam (Ativan) 0.5 mg PO Q4HR PRN; Protocol PRN Reason: Anxiety Stop: 11/17/19 22:52 Last Admin: 11/01/19 23:00 Dose: 0.5 mg Risperidone (Risperdal) 1 mg PO BID [facility]; Protocol Stop: 12/29/19 16:59 Last Admin: 11/02/19 09:23 Dose: 1 mg Zolpidem Tartrate (Ambien) 5 mg PO HS PRN PRN Reason: Insomnia Stop: 12/17/19 22:52 Last Admin: 11/01/19 21:30 Dose: 5 mg General: NAD HEENT: NC/AT Neck: Supple, No JVD Lungs: CTAB Cardiovascular: RRR, Normal S1, Normal S2 Abdomen: soft, non-tender Extremities: clear Neurological: no change Internal Medicine Assmt/Plan - Assessment Assessment: 1. HTN 2. Psychosis 3. Depression - Plan Plan: discharge home on norvasc 10 mg po daily Nutritional Asmnt/Malnutr-PDOC - Dietary Evaluation Malnutrition Findings (Please click <Entered> for more info): Nutritional Asmnt/Malnutrition Start: 10/21/19 08: 04 Text: Status: Complete Freq: Protocol: Document 10/21/19 08:04 [email or web address] (Rec: 10/21/19 08:13 [id number] [id number]) Nutritional Asmnt/Malnutrition Patient General Information Nutritional Screening Moderate Risk Diagnosis Psychosis Pertinent Medical Hx/Surgical Hx Hypertension, Renal failure, depression Subjective Information Patient was admitted from [place]. Homeless per H&P. Per nursing notes, patient is suspicious, paranoid, hyperverbal. Dietary providing ~2400 kcal, 115gm protein/day , adequate to meet nutrient needs. Current Diet Order/ Nutrition Support Mechanical Soft, 2gm Sodium Patient / S.O Not Indicated Pertinent Medications MOM Nutritional Hx/Data Height 1.42 m Height (Calculated Centimeters) 142.2 Current Weight (lbs) 54.431 kg Weight (Calculated Kilograms) 54.4 Weight (Calculated Grams) 64425.1 [place] Body Weight 90 % [place] Body Weight 133 Body Mass Index (BMI) 26.9 Recent Weight Change No Weight Status Overweight GI Symptoms GI Symptoms None Last BM 5/8 x 1 Difficult in: None Food Allergies No Cultural/Ethnic/Judaism Belief none indicated Usual diet at home unknown Skin Integrity/Comment: Niranjan 20, Intact Current %PO Good (75-100%) Estimated Nutritional Goals BEE in Kcals: Adj wt of IBW Calories/Kcals/Kg 44.3kg Adj BW 25-30 kcal/kg Kcals Calculated ~7885-3535 kcal/day Protein: Adj wt of IBW Protein g/k-1.2 gm/kg Protein Calculated 45-55gm/day Fluid: ml ~6428-3968 ml/day (1 ml/kcal) Nutritional Problem 1. Problem Problem No nutrition diagnosis at this time. Intervention/Recommendation Comments Continue mechanical soft, 2gm sodium diet as tolerated by patient. Expected Outcomes/Goals Expected Outcomes/Goals Oral intake >75% of meals, weight stable or trend toward IBW, nutrition related labs WNL F/U LR 10/27-
== END 2019-11-03 13:00 | disposition home or self-care (01) | DRG 885 ==
LOC: GERO 21:18
PROVIDERS: ADMIT Psychiatry & Neurology Psychiatry; ATTEND Psychiatry & Neurology Psychiatry
DX: F33.3 Major depressive disorder, recurrent, severe with psychotic symptoms (principal); N39.0 Urinary tract infection, site not specified; Z79.899 Other long term (current) drug therapy; Z81.8 Family history of other mental and behavioral disorders; I10 Essential (primary) hypertension; F09 Unspecified mental disorder due to known physiological condition
CPT/HCPCS: 71045-TC; 83036-90; G0410; J1200; J1630; J2060; Z7610